=== PATIENT | male | born 1955 | race Caucasian/White ===

== ENCOUNTER 2021-09-13 18:28 | Emergency (ER) | payer OTHER ==
[2021-09-13] MEDS ORDERED: Sodium Chloride 0.9% 10 ML Syringe FLUSH PRN (19:02)
[2021-09-13] MEDS ORDERED: 50% Dextrose in Water 50 ML Syringe IVPUSH PRN (19:11)
[2021-09-13] MEDS ORDERED: Insulin Regular, Human 100 Units/ML 3 ML Vial IVPUSH ONE (19:11)
[2021-09-13] MEDS ORDERED: Glucagon,Human Recombinant 1 MG Vial IM PRN (19:11)
[2021-09-13] MEDS ORDERED: Sodium Chloride 0.9% 1,000 ML IV SCH (19:15)
[2021-09-13 19:30] LABS: ESTIMATED GFR 68 mL/min (>60)
== END 2021-09-13 22:10 | disposition home or self-care (01) ==
LOC: JP.ED 18:28
DX: E11.65 Type 2 diabetes mellitus with hyperglycemia (principal); E11.00 Type 2 diabetes mellitus with hyperosmolarity without nonketotic hyperglycemic-hyperosmolar coma (NKHHC); I87.2 Venous insufficiency (chronic) (peripheral); I10 Essential (primary) hypertension; Z79.84 Long term (current) use of oral hypoglycemic drugs
CPT/HCPCS: 36415; 80053; 81001; 82009; 82803; 82947; 83690; 85025; 96360; 99283; 99284; J3490; J7030; J1815-GY